=== PATIENT | female | born 1995 | race Caucasian/White ===

== ENCOUNTER 2021-01-31 05:44 | Inpatient (IN) ==
[2021-01-31] MEDS ORDERED: Buffered Lidocaine 1% SYRIN 1 ml INTRADERM ONE (09:54)
[2021-01-31] MEDS ORDERED: Lactated Ringers 1000 ml BAG 1,000 ML IV ONE ×2 (09:54→16:39)
[2021-01-31] MEDS ORDERED: Lactated Ringers 1000 ml BAG 1,000 ML IV SCH ×2 (10:00→17:00)
[2021-01-31 11:07] LABS: ABS Basophils 0.1 10^3/ul (0-0.2); ABS Eosinophils 0.1 10^3/ul (0-0.6); ABS Monocytes 0.7 10^3/ul (0-0.8); ABS Neutrophils 10.1 10^3/ul (1.5-7.7); Eosinophil % 1.1 %; Hematocrit 36 % (35-47); Hemoglobin 12.3 g/dL (12.0-16.0); Lymphocyte % 15.1 %; Mean Corpuscular HGB Conc 34 g/dL (31-36); Mean Corpuscular Hemoglobin 29 pg (27-31); Mean Corpuscular Volume 86 fL (80-97); Mean Platelet Volume 10.3 fL (7.4-10.4); Platelet Count 188 10^3/uL (150-450); Red Blood Count 4.22 10^6 /uL (3.70-4.87); Red Cell Distribution Width 14 % (10-15)
[2021-01-31] MEDS ORDERED: OBEPIDURAL 0 ML EPIDURAL ONE (11:43)
[2021-01-31 11:57] LABS: Urine Benzodiazepine Screen None Detected (None Detect); Urine Cannabinoids Screen None Detected (None Detect); Urine Opiates Screen None Detected (None Detect)
[2021-01-31 13:13] LABS: Urine Appearance Clear; Urine Bilirubin Negative (Negative); Urine Blood Negative (Negative); Urine Color Yellow; Urine Glucose Negative (Negative); Urine Ketones Trace (Negative); Urine Nitrite Negative (Negative); Urine Protein Negative (Negative); Urine Specific Gravity 1.008 (1.002-1.030); Urine Urobilinogen Negative (Negative)
[2021-01-31] MEDS: Oxytocin in LR 20 UNITS/1,000 ML BAG IVPB SCH (14:14)
[2021-01-31] MEDS ORDERED: Lactated Ringers 1000 ml BAG 500 ML IV PRN (16:39)
[2021-01-31] MEDS ORDERED: Sodium Citrate/Citric Acid LIQ 15 ML UDC PO PRN (16:39)
[2021-01-31] MEDS ORDERED: EPHEDrine (Pressors) 50 MG/ML VIAL IV PUSH PRN (16:39)
[2021-01-31] MEDS ORDERED: Phenylephrine 40 mcg/mL 10mL (400mcg) SYRINGE IV PUSH PRN (16:39)
[2021-01-31] MEDS ORDERED: OBEPIDURAL 250 ML EPIDURAL SCH (17:00)
[2021-02-01] MEDS ORDERED: Bupivacaine 0.25% SDV PF 10 ML VIAL INJ ONE (00:35)
[2021-02-01] MEDS ORDERED: Measles, Mumps,Rubella VACC 0.5 ML/VIAL SUBCUT ONE (02:55)
[2021-02-01] MEDS ORDERED: Glycerin ADULT 2.4 gm SUPP PR PRN (02:55)
[2021-02-01] MEDS ORDERED: Dibucaine 1% OINT 28.35 GM TUBE PR PRN (02:55)
[2021-02-01] MEDS ORDERED: Oxytocin in LR 20 UNITS/1,000 ML BAG IVPB SCH (03:00)
[2021-02-01] MEDS ORDERED: witch hazeL 43% TOP.SOLN 200 ML PHA COMPOUND TOPICAL PRN (03:01)
[2021-02-01] MEDS: Oxytocin in LR 20 UNITS/1,000 ML BAG IVPB SCH (03:58)
[2021-02-01] MEDS ORDERED: Lidocaine 1% VIAL 10 MG/ML VIAL ONE (05:15)
[2021-02-01] MEDS ORDERED: Measles, Mumps,Rubella VACC 0.5 ML/VIAL ONE (17:32)
[2021-02-02 07:38] LABS: ABS Eosinophils 0.4 10^3/ul (0-0.6); ABS Lymphocytes 2.6 10^3/ul (1.0-4.8); ABS Monocytes 0.6 10^3/ul (0-0.8); ABS Neutrophils 6.6 10^3/ul (1.5-7.7); Eosinophil % 3.6 %; Hematocrit 30 % (35-47); Hemoglobin 10.3 g/dL (12.0-16.0); Lymphocyte % 25.7 %; Mean Corpuscular HGB Conc 34 g/dL (31-36); Mean Corpuscular Hemoglobin 30 pg (27-31); Mean Corpuscular Volume 87 fL (80-97); Mean Platelet Volume 9.6 fL (7.4-10.4); Platelet Count 151 10^3/uL (150-450); Red Blood Count 3.49 10^6 /uL (3.70-4.87); Red Cell Distribution Width 14 % (10-15); White Blood Count 10.3 10^3/uL (3.5-10.8)
[2021-02-02 08:02] VITALS: BP 129/72
== END 2021-02-02 15:03 | disposition home or self-care (01) | DRG 560 ==
LOC: MCHOBOUT 05:44 → MCHOB 09:51
PROVIDERS: ADMIT Midwife; ATTEND Midwife